=== PATIENT | female | born 1950 | race American Indian/Alaskan Native ===

== ENCOUNTER 2016-08-25 08:35 | Outpatient (CLI) | payer BC ==
[2016-08-25 09:08] LABS: #Basophils 0.1 thou/uL (0.0-0.2); #Eosinphils 0.3 thou/uL (0.0-0.7); #Lymphocytes 5.3 thou/uL (1.20-3.40); #Monocytes 0.7 thou/uL (0.11-0.59); #Neutrophils 5.5 thou/uL (1.40-6.50); %Basophils 1.1 % (0.0-1.0); %Eosinophils 2.9 % (0.0-10.0); %Lymphocytes 44.1 % (21.0-51.0); Hemoglobin 13.2 g/dL (12.0-16.0); Mean Corpuscular HGB CONC 32.2 g/dL (32.0-36.0); Mean Corpuscular Hemoglobin 27.3 pg (27.0-31.0); Mean Corpuscular Volume 84.8 fl (81.0-99.0); Platelet Count 332 thou/uL (130-400); RBC Distribution Width 12.6 % (11.5-14.5); Red Blood Cell (RBC) Count 4.82 mill/uL (4.20-5.40)
[2016-08-25 09:16] LABS: Hemoglobin A1c 6.5 % (4.0-6.0)
[2016-08-25 09:21] LABS: ALT (SGPT) 14 U/L (0-55); AST (SGOT) 13 U/L (5-34); Albumin 4.1 g/dL (3.4-4.8); Alkaline Phosphatase 98 U/L (40-150); Anion Gap 14 mmol/L (10-20); BUN (Urea Nitrogen) 17 mg/dL (9.8-20.1); Bilirubin, Total 0.5 mg/dL (0.2-1.2); Calc. Creatinine Clearance 0 mL/min (70-130); Calcium 9.4 mg/dL (7.8-10.44); Carbon Dioxide 25 mmol/L (23-31); Cardiac Risk 5.3 (Less than 4.5); Chloride 105 mmol/L (98-107); Cholesterol 216 mg/dL (< 200 Desired); Estimated GFR-MDRD 85; Globulin 3.2 g/dL (2.4-3.5); Glucose 123 mg/dL (80-115); HDL Cholesterol 41 mg/dL (>60 Neg Risk); LDL Cholesterol, Calculated 141 mg/dL; Potassium 3.9 mmol/L (3.5-5.1); Protein, Total 7.3 g/dL (5.8-8.1); Sodium 140 mmol/L (136-145); Triglycerides 172 mg/dL (Less than 150)
[2016-08-25 09:58] LABS: Thyroid Stimulating Hormone 0.6913 uIU/mL (0.35-4.94); Vitamin D, 25 Hydroxy 54.9 ng/mL (> 30.0)
== END 2016-08-25 08:36 ==
LOC: MADLABBHPM 08:35
PROVIDERS: ATTEND Family Medicine
DX: Z00.00 Encounter for general adult medical examination without abnormal findings (principal)
CPT/HCPCS: 36415; 80053; 80061; 82306; 83036; 84443; 85025

== ENCOUNTER 2017-02-14 20:59 | Emergency (ER) | payer BC ==
--- NOTE | 2017-02-14 22:31 | RAD ---
RIGHT FOOT THREE VIEWS: 02/14/17 HISTORY: 66-year-old female with foot pain after dropping a pallet of water on the top of the foot with bruis ing. Marked soft tissue swelling noted over the dorsum and anterior aspect of the foot. A prominent calca lourdes Achilles and plantar enthesophytes as well as other degenerative changes. No acute fracture or dislocation. IMPRESSION: Marked soft tissue swelling without fracture or dislocation. Prominent degenerative changes. POS: [facility]
== END 2017-02-14 22:25 | disposition home or self-care (01) ==
LOC: MADERS 20:59
DX: S90.31XA Contusion of right foot, initial encounter (principal); I10 Essential (primary) hypertension; E11.9 Type 2 diabetes mellitus without complications; Z79.84 Long term (current) use of oral hypoglycemic drugs; W20.8XXA Other cause of strike by thrown, projected or falling object, initial encounter

== ENCOUNTER 2020-04-01 09:46 | Outpatient (CLI) | payer BC ==
--- NOTE | 2020-04-01 10:16 | RAD ---
2 VIEW CHEST: Date: 04/01/2020 HISTORY: Chest pain. No comparison. FINDINGS: Lung mott show no focal infiltrate or consolidation. Interstitial markings are mildly prominent. He art size upper normal. Vascular markings upper normal. Osseous structures unremarkable. IMPRESSION: No evidence of acute process. POS: [facility]
[2020-04-01 10:32] LABS: #Basophils 0.1 thou/uL (0.0-0.2); #Eosinphils 0.2 thou/uL (0.0-0.7); #Lymphocytes 3.2 thou/uL (1.20-3.40); #Monocytes 0.7 thou/uL (0.11-0.59); #Neutrophils 6.4 thou/uL (1.40-6.50); %Basophils 0.9 % (0.0-1.0); %Eosinophils 2.1 % (0.0-10.0); %Lymphocytes 30.4 % (21.0-51.0); %Monocytes 6.3 % (0.0-10.0); %Neutrophils 60.4 % (42.0-75.0); Mean Corpuscular HGB CONC 30.7 g/dL (32.0-36.0); Mean Corpuscular Hemoglobin 26.6 pg (27.0-31.0); Mean Corpuscular Volume 86.5 fL (78.0-98.0); Mean Platelet Volume 5.9 fL (7.4-10.4); Platelet Count 334 thou/uL (130-400); RBC Distribution Width 12.8 % (11.5-14.5); Red Blood Cell (RBC) Count 5.26 mill/uL (4.20-5.40); White Blood Cell (WBC) Count 10.6 thou/uL (4.8-10.8)
[2020-04-01 10:36] LABS: ALT (SGPT) 14 U/L (8-55); AST (SGOT) 13 U/L (5-34); Albumin 4.2 g/dL (3.4-4.8); Alkaline Phosphatase 98 U/L (40-110); Anion Gap 14 mmol/L (10-20); BUN (Urea Nitrogen) 19 mg/dL (9.8-20.1); Bilirubin, Total 0.4 mg/dL (0.2-1.2); Calc. Creatinine Clearance 0 mL/min (70-130); Calcium 9.5 mg/dL (7.8-10.44); Carbon Dioxide 28 mmol/L (23-31); Chloride 102 mmol/L (98-107); Cholesterol 230 mg/dl (< 200 Desired); Estimated GFR-MDRD 77; Globulin 3.8 g/dL (2.4-3.5); Glucose 152 mg/dL (80-115); LDL Cholesterol, Calculated 154 mg/dL; Sodium 140 mmol/L (136-145); Triglycerides 148 mg/dL (Less than 150)
[2020-04-01 10:37] LABS: CKMB 0.7 ng/mL (0-6.6); Troponin I Less than 0.010 ng/mL (< 0.028)
[2020-04-01 10:50] LABS: Thyroid Stimulating Hormone 0.6502 uIU/mL (0.35-4.94)
[2020-04-01 11:31] LABS: HDL Cholesterol 46 mg/dL (>60 Neg Risk)
[2020-04-01 17:16] LABS: Hemoglobin A1c 7.3 % (4.0-6.0)
[2020-04-01 17:40] LABS: Vitamin D, 25 Hydroxy 32.8 ng/ml (> 30.0)
== END 2020-04-01 09:47 | disposition home or self-care (01) ==
LOC: MADLAB 09:46
PROVIDERS: ATTEND Family Medicine
DX: R07.89 Other chest pain (principal); R53.82 Chronic fatigue, unspecified; E78.2 Mixed hyperlipidemia; E11.9 Type 2 diabetes mellitus without complications; I10 Essential (primary) hypertension
CPT/HCPCS: 36415; 71046; 80053; 80061; 82306; 82553; 83036; 84443; 84484; 85025; 93005; 93010